=== PATIENT | female | born 1970 | race Caucasian/White ===

== ENCOUNTER 2016-11-19 07:00 | Outpatient (CLI) | payer MEDICAID ==
[2016-11-19 18:49] LABS: BASOPHILS % (AUTO) 0.5 %; EOSINOPHILS # (AUTO) 0.6 10^3/uL (0.0-0.7); EOSINOPHILS % (AUTO) 8.8 %; HCT - HEMATOCRIT 35.5 % (37.0-47.0); HGB - HEMOGLOBIN 11.6 g/dL (12.0-16.0); LYMPHOCYTES # (AUTO) 2.5 10^3/uL (1.5-3.5); LYMPHOCYTES % (AUTO) 38.1 %; MEAN CORPUSCULAR HEMOGLOBIN 28.3 pg (27.0-31.0); MEAN CORPUSCULAR HGB CONC 32.6 g/dL (32.0-36.0); MEAN CORPUSCULAR VOLUME 86.8 fL (81.0-99.0); MEAN PLATELET VOLUME 8.6 fL (7.9-10.8); MONOCYTES # (AUTO) 0.6 10^3/uL (0.0-1.0); NEUTROPHILS # (AUTO) 2.9 10^3/uL (1.5-6.6); NEUTROPHILS % (AUTO) 43.6 %; RED BLOOD COUNT 4.09 10^6/uL (4.20-5.40); RED CELL DISTRIBUTION WIDTH 15.8 % (12.0-15.0); UNCORRECTED WHITE BLOOD COUNT 6.6 x10^3/uL; WHITE BLOOD COUNT 6.6 x10^3/uL (4.8-10.8)
[2016-11-19 19:23] LABS: FERRITIN 10.4 ng/mL (11.0-306.8)
[2016-11-19 19:36] LABS: THYROID STIMULATING HORMONE 0.12 uIU/mL (0.34-5.60)
== END 2016-11-19 07:01 ==
LOC: LAB.WCP 07:00
PROVIDERS: ATTEND Physician Assistant Medical
DX: E03.9 Hypothyroidism, unspecified (principal); D64.9 Anemia, unspecified
CPT/HCPCS: 36415; 82306; 82728; 84443; 85025

== ENCOUNTER 2017-01-04 13:38 | Outpatient (CLI) | payer MEDICAID | END 2017-01-04 13:39 | disposition home or self-care (01) | LOC: LAB.WCP 13:38 | PROVIDERS: ATTEND Physician Assistant Medical | DX: E03.9 Hypothyroidism, unspecified (principal) | CPT/HCPCS: 36415; 84443 ==

== ENCOUNTER 2017-04-14 10:10 | Outpatient (CLI) | payer MEDICAID, OTHER | END 2017-04-14 10:11 | disposition home or self-care (01) | LOC: LAB.WCP 10:10 | PROVIDERS: ATTEND Physician Assistant Medical | DX: E03.9 Hypothyroidism, unspecified (principal) | CPT/HCPCS: 36415; 84443 ==

== ENCOUNTER 2017-07-02 08:00 | Outpatient (CLI) | payer OTHER ==
[2017-07-02 19:30] LABS: THYROID STIMULATING HORMONE 0.18 uIU/mL (0.34-5.60)
[2017-07-02 20:28] LABS: FREE T4 (FREE THYROXINE) 1.08 ng/dL (0.58-1.64)
== END 2017-07-02 08:01 | disposition home or self-care (01) ==
LOC: LAB.WCP 08:00
PROVIDERS: ATTEND Physician Assistant Medical
DX: E03.9 Hypothyroidism, unspecified (principal)
CPT/HCPCS: 36415; 84439; 84443

== ENCOUNTER 2017-11-02 08:00 | Outpatient (CLI) | payer OTHER ==
[2017-11-02 19:06] LABS: THYROID STIMULATING HORMONE 13.89 uIU/mL (0.34-5.60)
[2017-11-02 19:08] LABS: FREE T4 (FREE THYROXINE) 0.49 ng/dL (0.58-1.64)
== END 2017-11-02 08:01 | disposition home or self-care (01) ==
LOC: LAB.WCP 08:00
PROVIDERS: ATTEND Physician Assistant Medical
DX: E03.9 Hypothyroidism, unspecified (principal)
CPT/HCPCS: 36415; 84439; 84443; 84481

== ENCOUNTER 2017-12-13 08:00 | Outpatient (CLI) | payer OTHER | END 2017-12-13 08:01 | LOC: LAB.WCP 08:00 | PROVIDERS: ATTEND Physician Assistant Medical | DX: E03.9 Hypothyroidism, unspecified (principal) | CPT/HCPCS: 36415; 84443 ==

== ENCOUNTER 2017-12-20 08:00 | Outpatient (CLI) | payer OTHER ==
[2017-12-20 13:07] LABS: BASOPHILS % (AUTO) 0.3 %; EOSINOPHILS # (AUTO) 0.2 10^3/uL (0.0-0.7); EOSINOPHILS % (AUTO) 3.4 %; HGB - HEMOGLOBIN 12.8 g/dL (12.0-16.0); LYMPHOCYTES # (AUTO) 1.9 10^3/uL (1.5-3.5); LYMPHOCYTES % (AUTO) 41.2 %; MEAN CORPUSCULAR HEMOGLOBIN 31.4 pg (27.0-31.0); MEAN CORPUSCULAR HGB CONC 33.7 g/dL (32.0-36.0); MEAN CORPUSCULAR VOLUME 93.1 fL (81.0-99.0); MEAN PLATELET VOLUME 8.4 fL (7.9-10.8); MONOCYTES # (AUTO) 0.4 10^3/uL (0.0-1.0); MONOCYTES % (AUTO) 9.3 %; NEUTROPHILS # (AUTO) 2.2 10^3/uL (1.5-6.6); NEUTROPHILS % (AUTO) 45.8 %; PLT - PLATELET COUNT 326 10^3/uL (130-450); RED BLOOD COUNT 4.09 10^6/uL (4.20-5.40); RED CELL DISTRIBUTION WIDTH 13.6 % (12.0-15.0); WHITE BLOOD COUNT 4.7 x10^3/uL (4.8-10.8)
[2017-12-20 13:50] LABS: FERRITIN 31.8 ng/mL (11.0-306.8)
[2017-12-20 14:01] LABS: ALBUMIN 3.6 g/dL (3.2-5.5); ALBUMIN/GLOBULIN RATIO 0.9 (1.0-2.2); ALKALINE PHOSPHATASE 61 IU/L (42-121); ALT ALANINE AMINOTRANSFERASE 14 IU/L (10-60); AST ASPARTATE AMINOTRANSFERASE 18 IU/L (10-42); BILIRUBIN,TOTAL 0.7 mg/dL (0.2-1.0); BUN - BLOOD UREA NITROGEN 16 mg/dL (6-20); CALCIUM 8.7 mg/dL (8.5-10.3); CARBON DIOXIDE - CO2 22 mmol/L (21-32); CHLORIDE 112 mmol/L (101-111); CHOL/HDL RATIO 3.3 (<4.4); CHOLESTEROL 144 mg/dL; CREATININE 0.9 mg/dL (0.4-1.0); GFR - MDRD 67 (>89); GLUCOSE 97 mg/dL (70-100); HDL CHOLESTEROL 44 mg/dL; LDL CHOLESTEROL,CALCULATED 83 mg/dL; LDL/HDL RATIO 1.9 (<4.4); SODIUM 137 mmol/L (135-145); TOTAL PROTEIN 7.6 g/dL (6.7-8.2); VLDL CHOLESTEROL 17 mg/dL
== END 2017-12-20 08:01 | disposition home or self-care (01) ==
LOC: LAB.WCP 08:00
PROVIDERS: ATTEND Physician Assistant Medical
DX: Z00.00 Encounter for general adult medical examination without abnormal findings (principal); D64.9 Anemia, unspecified
CPT/HCPCS: 36415; 80053; 80061; 82607; 82728; 83721; 85025

== ENCOUNTER 2018-04-20 09:32 | Outpatient (CLI) | payer MEDICAID, OTHER ==
[2018-04-20 14:03] LABS: THYROID STIMULATING HORMONE 9.51 uIU/mL (0.34-5.60)
[2018-04-20 15:04] LABS: FREE T4 (FREE THYROXINE) 0.9 ng/dL (0.58-1.64)
== END 2018-04-20 23:59 | disposition home or self-care (01) ==
LOC: LAB.WCP 09:32
PROVIDERS: ATTEND Physician Assistant Medical
DX: E03.9 Hypothyroidism, unspecified (principal)
CPT/HCPCS: 36415; 84439; 84443

== ENCOUNTER 2018-05-20 08:35 | Outpatient (CLI) | payer OTHER | END 2018-05-20 23:59 | disposition home or self-care (01) | LOC: LAB.WCP 08:35 | PROVIDERS: ATTEND Physician Assistant Medical | DX: E03.9 Hypothyroidism, unspecified (principal) | CPT/HCPCS: 36415; 84443 ==

== ENCOUNTER 2018-08-24 08:00 | Outpatient (CLI) | payer OTHER ==
[2018-08-24 14:15] LABS: FREE T4 (FREE THYROXINE) 0.89 ng/dL (0.58-1.64)
== END 2018-08-24 23:59 | disposition home or self-care (01) ==
LOC: LAB.WCP 08:00
PROVIDERS: ATTEND Physician Assistant Medical
DX: E03.9 Hypothyroidism, unspecified (principal)
CPT/HCPCS: 36415; 84439; 84443

== ENCOUNTER 2019-01-05 10:37 | Outpatient (CLI) | payer OTHER | END 2019-01-05 23:59 | disposition home or self-care (01) | LOC: LAB.WCP 10:37 | PROVIDERS: ATTEND Physician Assistant | DX: E03.9 Hypothyroidism, unspecified (principal) | CPT/HCPCS: 36415; 84443 ==

== ENCOUNTER 2019-02-07 12:33 | Outpatient (CLI) | payer OTHER ==
--- NOTE | 2019-02-07 15:42 | XRAY Report ---
Reason: KNEE PAIN,LEFT Procedure Date: 02/07/2019 Accession Number: [id number] / [id number] Procedure: XR - Knee 2 View LT CPT Code: FULL RESULT: EXAM: LEFT KNEE RADIOGRAPHY EXAM DATE: 02/07/2019 01:03 PM. CLINICAL HISTORY: Knee pain, left. COMPARISON: None. TECHNIQUE: 3 views. FINDINGS: Bones: Normal. No fractures or bone lesions. Joints: There is minimal narrowing of the medial compartment of the knee. No chondrocalcinosis. Soft Tissues: Normal. No soft tissue swelling. IMPRESSION: Minimal degenerative changes at the knee. RADIA
== END 2019-02-07 12:34 | disposition home or self-care (01) ==
LOC: DI 12:33
PROVIDERS: ATTEND Physician Assistant Medical
DX: M17.12 Unilateral primary osteoarthritis, left knee (principal)

== ENCOUNTER 2019-03-22 09:44 | Outpatient (CLI) | payer OTHER ==
[2019-03-22 13:07] LABS: THYROID STIMULATING HORMONE 0.17 uIU/mL (0.34-5.60)
[2019-03-22 13:10] LABS: FREE T4 (FREE THYROXINE) 1.02 ng/dL (0.58-1.64)
== END 2019-03-22 23:59 | disposition home or self-care (01) ==
LOC: LAB.WCP 09:44
PROVIDERS: ATTEND Physician Assistant Medical
DX: E03.9 Hypothyroidism, unspecified (principal)
CPT/HCPCS: 36415; 84439; 84443; 84481

== ENCOUNTER 2019-04-18 10:57 | Outpatient (CLI) | payer OTHER ==
[2019-04-18 20:47] VITALS: BP 137/88
--- NOTE | 2019-04-18 20:47 | SLEEP CARE CONSULTATION ---
Information from patient questionnaire entered by Aida Garcia. I have reviewed and concur with the information entered by Aida Garcia. This document represents the service I personally performed and the decisions made by me, Yu Bautista MD, [facility]. History of Present Illness Reason for Visit: New patient Chief Complaint: reports: Excessive daytime sleepiness, Fatigue Duration of Symptoms: a long time Usual bedtime: 5321-6103 Time it takes to fall asleep: 7-10 minutes Snores at night: No (not usually) Observed to quit breathing while asleep: No Sleeps alone due to snoring: No Number of times waking at night: 1-2 Reasons for waking at night: reports: Pain, Bathroom, Other (sometimes asthma) Toss, Turn, or Twitch while sleeping: Yes Recalls having dreams: Yes Usually gets out of bed at: [id number] Feels refreshed in the morning: Yes (50/50 yes/no) Morning headache: Yes (50/50 yes/no) Sleepy or fatigued during the day: Yes Ever fallen asleep while driving: Yes Takes day naps: Yes Dreams during day naps: Yes Prior sleep studies: No Additional HPI information: I had the pleasure of seeing Ms. Orr today regarding the possibility of her having a sleep disorder. As you know, he is a 49 year old lady who complains of excessive daytime sleepiness almost all her life. She took Adderall for 13 years which helped but it recently raised her heart rate and she had to stop. The patient tells me that she normally goes to bed around 10:30 pm - midnight, and it takes her approximately 7 - 10 minutes to fall asleep. She takes trazodone every night. She has not been told that she snores loudly or i rregularly at night. She has never been observed to stop breathing in her sleep. Her spouse can still sleep in the same bed. He uses a CPAP. She can recall waking up on the average of 1 - 2 times during the night. Most of the time she wakes up because of having to use the bathroom and pain. She has never awakened because of her own snoring, choking, or having to gasp for air. There is a lot of tossing and turning in her sleep. No somniloquy (sleep talking) or somnambulism (sleep walking). Generally she can recall having dreams. In the morning she usually gets up out of the bed around 6 - 9 a.m. not feeling refreshed nor rested. She occasionally has a morning headache. During the day she complains of feeling sleepy and fatigued. Her score on [place] Sleepiness Scale is 20 out of 24. She has fallen asleep while driving and has gone out of the [place]. She usually takes 1 3 hour nap during the day. Upon falling asleep during the day she reports having vivid dreams. She has had sleep paralysis, experienced cataplexy and symptoms of restless leg syndrome. She reports having impaired concentration during the day. Subjective Initial [place] Sleepiness Scale score: 20 Past Medical History Past Medical History: reports: Arthritis, Hypothyroidism, Anemia, Asthma, Depr ession, Mood disorder, Attention deficit, Other (degenerative disc disease) Social History The patient's occupation is not employed. Patient is and lives in [place]. Have you smoked in the past 12 months: No Cigarettes per day (20/pack): 40 Years of smokin Quit date: 1996 Smoking Pack Years: 18.0 Alcohol use: Yes Alcohol amount and frequency: not much, on weekends, quit 2006 Caffeine use: No Caffeine amount and frequency: quit a year ago Family History Family history of sleep disordered breathing: No Allergies and Home Medications Allergy and home medication list: Meds: trazodone, topiramate, Breo Elipta, levothyroxine, liothyronine, B12 Allergies: Seroquel, codeine, fentanyl, iodine, morphine Review of Systems Weight gain over past 5 years: 20 Cardiovascular: denies: high blood pressure, palpitations, chest pain, irregular heart rate or pulse, leg or foot swelling, have to sleep sitting up, other Respiratory: denies: shortness of breath, wheeze, sputum production, chronic cough, other Gastrointestinal: reports: difficulty swallowing Urinary: denies: incontinence, frequency, urgency, impotence, other Neurological: denies: headaches, seizure, head trauma, disorientation, speech dysfunction, gait or balance problems, fainting or unconsciousness, other Psychiatric: reports: Attention Deficit Hyperactivity, anxiety, depression, mood disorder Ear/Nose/Throat: reports: nasal congestion, sinus problems, nose bleeds, dry mouth/throat, hoarseness Endocrine: reports: thyroid disease, sluggishness, too hot or cold Musculoskeletal: reports: joint pain, neck pain, back pain, joint swelling, muscle pain or cramping, other (arthritis in left knee) Immunologic: reports: sneezing, itching, allergies to food or environment Physical Exam Vital signs obtained and entered by: Dr. Bautista Blood Pressure: 137/88 Cuff size: regular Heart Rate: 75 O2 Saturation: 98 Height: 5 ft 8 in Weight: 275 lb Body Mass Index: 41.8 BMI Classification: Obesity Class 3 Neck circumference: 15 Mood/affect: normal HEENT: No craniofacial malformation Nostrils: patent to airflow Turbinates: normal Septum: midline Mouth and throat: narrow oropharynx Soft palate: long Hard palate: normal Uvula: normal Uvula visualization: 50% Mallampati Class II Tongue: normal in size Tonsils: small Chin and jaw: normal size and position Neck: normal w/o lymphadenopathy or thyromegaly Heart: regular rate and rhythm Lungs: clear bilaterally Abdomen: soft, non-tender Extremities: no edema or clubbing Neurologic: intact, no focal deficits Impression and Plan IMPRESSION: 1. Hypersomnia, chronic, with symptoms of narcolepsysleep paralysis, hypnagogic hallucination, and possible cataplexy. However, she may also has other sleep disrupting conditions such as sleep-disordered breathing that could explain the excessive daytime sleepiness. Narrow oropharynx and obesity are common predisposing factors for obstructive sleep apnea-hypopnea syndrome. I recommend proceeding to an in-laboratory polysomnography with multiple sleep latency test (MSLT). However, the multiple sleep latency test will have to wait until she can off all medications that have sedating side effect, in her case, trazodone and topiramate, for at least 2 week. Plan: 1. Schedule an in-laboratory polysomnography and a multiple sleep latency test (MSLT) later if the polysomnography is negative for sleep-disordered breathing. 2. Avoid long distance driving or when feeling sleepy. 3. Avoid alcohol, sedative and muscle relaxant around bedtime. 4. Attempt to lose weight. 5. Return in 1 to 2 weeks after the study to discuss results and initiate therapy I spent 100% of this 20 minute visit face to face with the patient with greater than 50% of this was spent time counseling the patient and coordination of care.
== END 2019-04-18 10:58 | disposition home or self-care (01) ==
LOC: SC 10:57
PROVIDERS: ATTEND Internal Medicine Pulmonary Disease
DX: G47.10 Hypersomnia, unspecified (principal); G47.53 Recurrent isolated sleep paralysis; R44.2 Other hallucinations; E66.9 Obesity, unspecified; Z68.41 Body mass index [BMI] 40.0-44.9, adult
CPT/HCPCS: 99203; 99212

== ENCOUNTER 2019-06-12 19:28 | Outpatient (CLI) | payer OTHER | END 2019-06-12 19:29 | disposition home or self-care (01) | LOC: SC 19:28 | PROVIDERS: ATTEND Internal Medicine Pulmonary Disease | DX: G47.10 Hypersomnia, unspecified (principal); E66.9 Obesity, unspecified; Z68.41 Body mass index [BMI] 40.0-44.9, adult; G47.8 Other sleep disorders | CPT/HCPCS: 95810 ==

== ENCOUNTER 2019-07-03 12:56 | Outpatient (CLI) | payer OTHER ==
--- NOTE | 2019-07-03 13:59 | SLEEP CARE CONSULTATION ---
Information from patient questionnaire entered by Aida Garcia. I have reviewed and concur with the information entered by Aida Garcia. This document represents the service I personally performed and the decisions made by me, Yu Bautista MD, [facility]. History of Present Illness Initial [place] Sleepiness Scale score: 20 Current [place] Sleepiness Scale score: 19 Additional HPI information: HPI: Ms. Orr returned for follow up of the sleep study she had on 06/12/2019. The polysomnography showed that the patient had normal sleep efficiency. The sleep architecture was relatively normal considering the first-night effect. Respiratory monitoring showed no significant sleep disordered breathing (AHI = 0.9) or hypoxia (melody oxygen saturation of 88% and only 0.1% to the total sleep time was spent with oxygen saturation below 90%). The few respiratory events occurred only during supine sleep (supine AHI = 3.2; non-supine = 0.00). Snore was moderate in intensity. There was no significant periodic leg movement of sleep. Cardiac rhythm was normal sinus rhythm without significant arrhythmia. No abnormal behavior (parasomnia) observed during the night. The patient was informed of these findings. I explained to her that the sleep study did not show sleep disrupting conditions. She continues to complain of excessive daytime sleepiness. Her [place] Sleepiness Scale score is 19 today. She is still taking trazodone and topiramate, both of which can cause sleepiness. Allergies and Home Medications Drug allergies reviewed: Yes (Seroquel, codeine, fentanyl, iodine, morphine) Home medication list reviewed: Yes (trazodone, topiramate, Breo Elipta, levothyroxine, liothyronine, B12) Physical Exam Height: 5 ft 8 in Weight: 270 lb Body Mass Index: 41.0 BMI Classification: Morbidly Obese Impression and Plan IMPRESSION: 1. Hypersomnia, of unknown etiology. Her recent sleep study did not show any sleep disrupting conditions. Her sleep architecture was also normal. She appears to be getting adequate sleep at night. Therefore, further evaluation will with the multiple sleep latency test (MSLT). However, for this test to be valid, the patient must be off all psychotropic medications, especially those that can cause sleepiness, for at least 2 weeks. I will leave it up to her psychologist/psychiatrist to decide whether it is possible for her to come off the medications. I did call her psychologist Dr. Ramirez twice during her clinic visit but he did not answer. PLAN: 1. Follow up with her psychologist/psychiatrist to see if she can get off all sedating medications for at least 2 week. 2. Consider multiple sleep latency test (MSLT) if she can come of the medications. 4. Return to the sleep clinic for follow up after the study. Addendum: Dr. Ramirez returned call after the patient left. He said the medications were started because she could not sleep without them. He feels that her insomnia will return immediately if he stops the medications. Therefore, I will not order an MSLT because her needing the medications to help her sleep is inconsistent with narcolepsy and other hypersomnolence. I spent 100% of this visit face to face with the patient with greater than 50% of this was spent time counseling the patient and coordination of care.
== END 2019-07-03 12:57 | disposition home or self-care (01) ==
LOC: SC 12:56
PROVIDERS: ATTEND Internal Medicine Pulmonary Disease
DX: G47.10 Hypersomnia, unspecified (principal); E66.01 Morbid (severe) obesity due to excess calories; Z68.41 Body mass index [BMI] 40.0-44.9, adult
CPT/HCPCS: 99212; 99213

== ENCOUNTER 2019-09-14 13:46 | Outpatient (CLI) | payer OTHER ==
[2019-09-14 18:15] LABS: BASOPHILS % (AUTO) 0.3 %; EOSINOPHILS # (AUTO) 0.2 10^3/uL (0.0-0.7); EOSINOPHILS % (AUTO) 2.6 %; HGB - HEMOGLOBIN 13.3 g/dL (12.0-16.0); LYMPHOCYTES # (AUTO) 2.5 10^3/uL (1.5-3.5); LYMPHOCYTES % (AUTO) 42.2 %; MEAN CORPUSCULAR HEMOGLOBIN 30.2 pg (27.0-31.0); MEAN CORPUSCULAR HGB CONC 31.5 g/dL (32.0-36.0); MEAN CORPUSCULAR VOLUME 95.7 fL (81.0-99.0); MEAN PLATELET VOLUME 10.3 fL (7.9-10.8); MONOCYTES # (AUTO) 0.6 10^3/uL (0.0-1.0); MONOCYTES % (AUTO) 9.9 %; NEUTROPHILS # (AUTO) 2.6 10^3/uL (1.5-6.6); NEUTROPHILS % (AUTO) 44.8 %; PLT - PLATELET COUNT 321 10^3/uL (130-450); RED BLOOD COUNT 4.41 10^6/uL (4.20-5.40); RED CELL DISTRIBUTION WIDTH 13.2 % (12.0-15.0); WHITE BLOOD COUNT 5.8 x10^3/uL (4.8-10.8)
[2019-09-14 18:46] LABS: ALBUMIN 4.2 g/dL (3.2-5.5); ALBUMIN/GLOBULIN RATIO 1.1 (1.0-2.2); ALKALINE PHOSPHATASE 77 IU/L (42-121); ALT ALANINE AMINOTRANSFERASE 20 IU/L (10-60); AST ASPARTATE AMINOTRANSFERASE 24 IU/L (10-42); BILIRUBIN,TOTAL 0.4 mg/dL (0.2-1.0); BUN - BLOOD UREA NITROGEN 17 mg/dL (6-20); CARBON DIOXIDE - CO2 22 mmol/L (21-32); CHLORIDE 111 mmol/L (101-111); CHOL/HDL RATIO 3.9 (<4.4); CHOLESTEROL 149 mg/dL; CREATININE 0.8 mg/dL (0.4-1.0); GLUCOSE 98 mg/dL (70-100); HDL CHOLESTEROL 38 mg/dL; LDL CHOLESTEROL,CALCULATED 87 mg/dL; LDL/HDL RATIO 2.3 (<4.4); SODIUM 139 mmol/L (135-145); TOTAL PROTEIN 8.2 g/dL (6.7-8.2); VLDL CHOLESTEROL 24 mg/dL
[2019-09-14 18:55] LABS: FREE T3 3.37 pg/mL (2.5-3.9)
[2019-09-14 19:40] LABS: FREE T4 (FREE THYROXINE) 0.95 ng/dL (0.58-1.64)
== END 2019-09-14 13:47 | disposition home or self-care (01) ==
LOC: LAB.WCP 13:46
PROVIDERS: ATTEND Physician Assistant Medical
DX: Z00.00 Encounter for general adult medical examination without abnormal findings (principal)
CPT/HCPCS: 36415; 80053; 80061; 83721; 84439; 84443; 84481; 85025

== ENCOUNTER 2019-11-17 10:15 | Emergency (ER) | payer MEDICAID, OTHER ==
[2019-11-17] MEDS ORDERED: PENICILLIN VK 250 MG TABLET PO STA (10:34)
--- NOTE | 2019-11-17 10:39 | ED Physician Documentation ---
History of Present Illness - Stated complaint Stated Complaint: TOOTH PX - Chief complaint Chief Complaint: Heent - History obtained from History obtained from: Patient - History of Present Illness Pain level max: 8 Pain level now: 8 - Additonal information Additional information: 49-year-old female presents to the emergency department complaint of left-sided dental pain. This been ongoing for the past several days, increasing pain today. Has not contacted her dentist yet. She had a crown and root canal done approximately 1 year ago on that tooth. No facial swelling. No fevers. 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 - Present Medications Home Medications: Ambulatory Orders Medication Instructions Recorded Confirmed Budesonide [Pulmicort] 1 puffs INH DAILY 10/26/12 05/13/16 Topiramate [Topamax] 100 mg PO DAILY 10/26/12 05/13/16 Albuterol Sulfate [Albuterol 0 puffs INH ONCE PRN 12/04/13 05/13/16 Sulfate Hfa] Natures Thyroid 1.5 gm PO BID 12/04/13 05/13/16 Albuterol Sulfate [Proair Hfa 3 puffs IH QID #1 hfa.aer.ad 05/13/16 Inhaler] Benzonatate [Tessalon] 100 mg PO TID PRN #25 capsule 05/13/16 Cephalexin [Keflex] 500 mg PO QID #24 capsule 05/13/16 dexAMETHasone [Decadron] 4 mg PO DAILY #5 tablet 05/13/16 Penicillin V Potassium 500 mg PO Q6HR #40 tablet 11/17/19 - Allergies Allergies/Adverse Reactions: Allergies Allergy/AdvReac Type Severity Reaction Status Date / Time quetiapine fumarate * Allergy Anxiety Verified 11/17/19 10:27 [From Seroquel] codeine [Codeine] AdvReac Unknown Anxiety Verified 11/17/19 10:27 fentanyl AdvReac Unknown Anxiety Verified 11/17/19 10:27 iodine AdvReac Unknown swelling Verified 11/17/19 10:27 morphine AdvReac Unknown Anxiety Verified 11/17/19 10:27 - Social History Does the pt smoke?: No Smoking Status: Never smoker Does the pt have substance abuse?: Yes - POLST Patient has POLST: No PD ED PE NORMAL - Vitals Vital signs reviewed: Yes - General General: Alert and oriented X 3, No acute distress, Well developed/nourished - HEENT HEENT: PERRL, Moist mucous membranes, Other (Tender to palpation over the left lower molar, crown in place. No gingival swelling. No abscess. No facial swelling. No trismus. No Moncho's angina. Normal phonation) - Neck Neck: Supple, no meningeal sign, No adenopathy - Cardiac Cardiac: RRR, Strong equal pulses - Respiratory Respiratory: No respiratory distress, Clear bilaterally - Derm Derm: Warm and dry, No rash - Neuro Neuro: Alert and oriented X 3 - Psych Psych: Normal mood, Normal affect Results - Vitals Vitals: Vital Signs - 24 hr 11/17/19 10:24 Temperature 36.6 C Heart Rate 69 Respiratory 20 Rate Blood Pressure 177/103 H O2 Saturation 98 Oxygen O2 Source Room air PD MEDICAL DECISION MAKING - ED course Complexity details: considered differential, d/w patient ED course: Patient with left lower dental pain. We will place on penicillin. We will have her follow-up closely with her dentist next week. No drainable abscess. No voice changes. No speech or breathing difficulties. No swelling. Patient counseled regarding signs and symptoms for which I believe and urgent re- evaluation would be necessary. Patient with good understanding of and agreement to plan and is comfortable going home at this time This document was made in part using voice recognition software. While efforts are made to proofread this document, sound alike and grammatical errors may occur. Departure - Departure Disposition: Home, Self Care Clinical Impression: Pain, dental Condition: Good Instructions: ED Tooth Pain Follow-Up: Your,Dentist on Wednesday [Other] Prescriptions: Penicillin V Potassium 500 mg PO Q6HR #40 tablet Comments: Take all antibiotics until gone. Return if you worsen. Follow-up with your dentist on Wednesday for further care.
[2019-11-17 10:48] VITALS: BP 168/89
== END 2019-11-17 10:48 | disposition home or self-care (01) ==
LOC: ED 10:15
DX: K08.89 Other specified disorders of teeth and supporting structures (principal)
CPT/HCPCS: 99282; 99284; A9270

== ENCOUNTER 2020-01-19 08:00 | Outpatient (CLI) | payer MEDICAID ==
[2020-01-19 13:04] LABS: FREE T4 (FREE THYROXINE) 1.26 ng/dL (0.58-1.64)
== END 2020-01-19 08:01 | disposition home or self-care (01) ==
LOC: LAB.WCP 08:00
PROVIDERS: ATTEND Physician Assistant Medical
DX: E03.9 Hypothyroidism, unspecified (principal)
CPT/HCPCS: 36415; 84439; 84443

== ENCOUNTER 2020-02-21 09:32 | Outpatient (CLI) | payer MEDICAID ==
[2020-02-21 12:52] LABS: FREE T4 (FREE THYROXINE) 0.92 ng/dL (0.58-1.64)
== END 2020-02-21 23:59 | disposition home or self-care (01) ==
LOC: LAB.WCP 09:32
PROVIDERS: ATTEND Physician Assistant Medical
DX: E03.9 Hypothyroidism, unspecified (principal)
CPT/HCPCS: 36415; 84439; 84443

== ENCOUNTER 2020-09-27 08:00 | Outpatient (CLI) | payer MEDICAID ==
[2020-09-27 18:24] LABS: THYROID STIMULATING HORMONE 0.16 uIU/mL (0.34-5.60)
[2020-09-27 19:09] LABS: FREE T4 (FREE THYROXINE) 1.05 ng/dL (0.58-1.64)
== END 2020-09-27 23:59 | disposition home or self-care (01) ==
LOC: LAB.WCP 08:00
PROVIDERS: ATTEND Physician Assistant Medical
DX: E04.1 Nontoxic single thyroid nodule (principal)
CPT/HCPCS: 36415; 84439; 84443

== ENCOUNTER 2020-10-10 08:00 | Outpatient (CLI) | payer OTHER, MEDICAID ==
[2020-10-10 12:25] LABS: BASOPHILS % (AUTO) 0.3 %; EOSINOPHILS # (AUTO) 0.2 10^3/uL (0.0-0.7); EOSINOPHILS % (AUTO) 3.1 %; HCT - HEMATOCRIT 40.6 % (37.0-47.0); HGB - HEMOGLOBIN 12.9 g/dL (12.0-16.0); LYMPHOCYTES # (AUTO) 2.7 10^3/uL (1.5-3.5); LYMPHOCYTES % (AUTO) 44.2 %; MEAN CORPUSCULAR HEMOGLOBIN 31.2 pg (27.0-31.0); MEAN CORPUSCULAR HGB CONC 31.8 g/dL (32.0-36.0); MEAN CORPUSCULAR VOLUME 98.1 fL (81.0-99.0); MEAN PLATELET VOLUME 10.5 fL (7.9-10.8); MONOCYTES # (AUTO) 0.6 10^3/uL (0.0-1.0); MONOCYTES % (AUTO) 9.8 %; NEUTROPHILS # (AUTO) 2.6 10^3/uL (1.5-6.6); NEUTROPHILS % (AUTO) 42.4 %; PLT - PLATELET COUNT 287 10^3/uL (130-450); RED BLOOD COUNT 4.14 10^6/uL (4.20-5.40); RED CELL DISTRIBUTION WIDTH 13.3 % (12.0-15.0); WHITE BLOOD COUNT 6.2 x10^3/uL (4.8-10.8)
[2020-10-10 12:27] LABS: ALBUMIN 4.1 g/dL (3.2-5.5); ALBUMIN/GLOBULIN RATIO 1.1 (1.0-2.2); ALKALINE PHOSPHATASE 65 IU/L (42-121); ALT ALANINE AMINOTRANSFERASE 24 IU/L (10-60); AST ASPARTATE AMINOTRANSFERASE 25 IU/L (10-42); BILIRUBIN,TOTAL 0.5 mg/dL (0.2-1.0); BUN - BLOOD UREA NITROGEN 13 mg/dL (6-20); CARBON DIOXIDE - CO2 22 mmol/L (21-32); CHLORIDE 109 mmol/L (101-111); CHOL/HDL RATIO 3.3 (<4.4); CHOLESTEROL 135 mg/dL; CREATININE 0.8 mg/dL (0.4-1.0); GFR - MDRD 76 (>89); GLUCOSE 111 mg/dL (70-100); HDL CHOLESTEROL 41 mg/dL; LDL CHOLESTEROL,CALCULATED 77 mg/dL; LDL/HDL RATIO 1.9 (<4.4); SODIUM 138 mmol/L (135-145); TOTAL PROTEIN 7.8 g/dL (6.7-8.2); TRIGLYCERIDES 85 mg/dL; VLDL CHOLESTEROL 17 mg/dL
[2020-10-10 12:28] LABS: THYROID STIMULATING HORMONE 0.19 uIU/mL (0.34-5.60)
[2020-10-10 13:19] LABS: FREE T4 (FREE THYROXINE) 0.98 ng/dL (0.58-1.64)
== END 2020-10-10 23:59 | disposition home or self-care (01) ==
LOC: LAB.WCP 08:00
PROVIDERS: ATTEND Physician Assistant Medical
DX: Z00.00 Encounter for general adult medical examination without abnormal findings (principal); E03.9 Hypothyroidism, unspecified
CPT/HCPCS: 36415; 80053; 80061; 83721; 84439; 84443; 85025

== ENCOUNTER 2020-11-08 08:00 | Outpatient (CLI) | payer MEDICAID, OTHER ==
[2020-11-08 18:42] LABS: THYROID STIMULATING HORMONE 0.16 uIU/mL (0.34-5.60)
[2020-11-08 19:19] LABS: FREE T4 (FREE THYROXINE) 1.02 ng/dL (0.58-1.64)
== END 2020-11-08 23:59 | disposition home or self-care (01) ==
LOC: LAB.WCP 08:00
PROVIDERS: ATTEND Physician Assistant Medical
DX: E03.9 Hypothyroidism, unspecified (principal)
CPT/HCPCS: 36415; 84439; 84443

== ENCOUNTER 2021-01-10 13:51 | Outpatient (CLI) | payer OTHER ==
--- NOTE | 2021-01-13 15:43 | Mammography Report ---
BILATERAL DIGITAL SCREENING MAMMOGRAM 3D/2D: 01/10/2021 CLINICAL: Routine screening. Comparison is made to exams dated: 03/12/2016 mammogram, 10/29/2014 mammogram, 07/20/2013 mammogram, an d 08/19/2011 mammogram - [facility]. The tissue of both breasts is predominantly fat ty. No significant masses, calcifications, or other findings are seen in either breast. There has been no significant interval change. IMPRESSION: NEGATIVE There is no mammographic evidence of malignancy. A 1 year screening mammogram is recommended. This exam was interpreted at Station ID: [id number]. NOTE: For mammograms, a report in lay terms will be sent to the patient. Approximately 15% of breast malignancies will not be visualized mammographically. In the management of a palpable breast mass, a negative mammogram must not discourage biopsy of a clinically suspicious lesion. Electronically Signed By: Claudio Nash M.D. aty/penrad:01/10/2021 15:56:07 ACR BI-RADS Category 1: Negative 3341F PARENCHYMAL PATTERN: (F) - The breast(s) demonstrate(s) diffuse fatty replacement. BI-RADS CATEGORY: (1) - 1 RECOMMENDATION: (ANNUAL) - Recommend routine annual screening mammography. [id number] 1 year screening LATERALITY: (B)
== END 2021-01-10 13:52 | disposition home or self-care (01) ==
LOC: DI 13:51
DX: Z12.31 Encounter for screening mammogram for malignant neoplasm of breast (principal)

== ENCOUNTER 2021-01-10 13:51 | Outpatient (CLI) | payer OTHER ==
--- NOTE | 2021-01-10 16:04 | Ultrasound Report ---
PROCEDURE: Head or Neck Soft Tissue INDICATIONS: THYROID NODULE TECHNIQUE: Real-time scanning was performed of the thyroid gland, with image documentation. COMPARISON: 10/30/2013 FINDINGS: Right: Thyroid lobe measures 4.9 x 1.6 x 1.5 cm, and is slightly heterogeneous in echotexture. Left: Thyroid lobe measures 4.7 x 1.8 x 1.5 cm, and is slightly heterogeneous in echotexture. Isthmus: 4 mm thick. Nodule number: One Location: Right superior Size: 5 x 3 x 3 mm. Composition: Solid Echogenicity: Hypoechoic Shape: wider than tall. Margins: Smooth Echogenic foci: None Total points: 4 ACR TI-RADS category: TI-RADS 4 IMPRESSION: 1. Moderately suspicious (TI-RADS 4) 5 x 3 x 3 mm nodule in the superior aspect of the right thyroid lobe. Based on size and imaging characteristics follow-up ultrasound at one, 3 and 5 years is recomme nded. 2. Thyroid nodules previously described by thyroid ultrasound obtained 10/30/2013 not identified on cu rrent study. ACR TI-RADS definitions and recommendations: TI-RADS 1 (benign): 0 points. FNA not needed. TI-RADS 2 (not suspicious): 2 points. FNA not needed. TI-RADS 3 (mildly suspicious): 3 points. ? FNA if 2.5 cm or larger, follow up if 1.5 cm or larger (at 1, 3, and 5 years). TI-RADS 4 (moderately suspicious): 4-6 points. ? FNA if 1.5 cm or larger, follow up if 1 cm or larger (at 1, 2, 3, and 5 years). TI-RADS 5 (highly suspicious): 7 points or more. ? FNA if 1 cm or larger, follow up if 0.5 cm or larger (every year for 5 years). Reviewed by: Andree Holbrook MD, PhD on 01/10/2021 4:03 PM PDT Approved by: Andree Holbrook MD, PhD on 01/10/2021 4:03 PM PDT Station ID: [id number]
== END 2021-01-10 13:52 | disposition home or self-care (01) ==
LOC: DI 13:51
PROVIDERS: ATTEND Physician Assistant Medical
DX: E04.1 Nontoxic single thyroid nodule (principal)

== ENCOUNTER 2021-03-12 08:00 | Outpatient (CLI) | payer OTHER ==
[2021-03-12 18:31] LABS: THYROID STIMULATING HORMONE 1.92 uIU/mL (0.34-5.60)
[2021-03-12 18:33] LABS: FREE T4 (FREE THYROXINE) 0.73 ng/dL (0.58-1.64)
== END 2021-03-12 23:59 | disposition home or self-care (01) ==
LOC: LAB.WCP 08:00
PROVIDERS: ATTEND Student in an Organized Health Care Education/Training Program
DX: E03.9 Hypothyroidism, unspecified (principal)
CPT/HCPCS: 36415; 84439; 84443

== ENCOUNTER 2021-04-20 08:00 | Outpatient (CLI) | payer OTHER | END 2021-04-20 23:59 | disposition home or self-care (01) | LOC: LAB.N 08:00 | PROVIDERS: ATTEND Nurse Practitioner | DX: J06.9 Acute upper respiratory infection, unspecified (principal); Z20.822 Contact with and (suspected) exposure to COVID-19 ==

== ENCOUNTER 2021-05-05 08:17 | Outpatient (CLI) | payer OTHER ==
[2021-05-05 12:46] LABS: THYROID STIMULATING HORMONE 4.81 uIU/mL (0.34-5.60)
== END 2021-05-05 23:59 | disposition home or self-care (01) ==
LOC: LAB.WCP 08:17
PROVIDERS: ATTEND Physician Assistant Medical
DX: E03.9 Hypothyroidism, unspecified (principal)
CPT/HCPCS: 36415; 84443

== ENCOUNTER 2022-01-28 14:22 | Outpatient (CLI) | payer OTHER ==
--- NOTE | 2022-01-28 16:28 | XRAY Report ---
PROCEDURE: Ankle 3 View BILAT INDICATIONS: ANKEL PAIN, BILATERAL TECHNIQUE: 3 views of both ankles were acquired. COMPARISON: None FINDINGS: Bones: No fractures or dislocations. Ankle mortise is normally aligned. No suspicious bony lesions . Soft tissues: No tibiotalar joint effusion. Achilles tendon appears normal. IMPRESSION: Normal bilateral ankles. Reviewed by: Travis Tejada MD on 01/28/2022 4:27 PM PDT Approved by: Travis Tejada MD on 01/28/2022 4:27 PM PDT Station ID: [id number]
== END 2022-01-28 14:23 | disposition home or self-care (01) ==
LOC: DI.N 14:22
PROVIDERS: ATTEND Physician Assistant
DX: M25.572 Pain in left ankle and joints of left foot (principal); M25.571 Pain in right ankle and joints of right foot

== ENCOUNTER 2022-09-01 09:24 | Outpatient (CLI) | payer OTHER ==
--- NOTE | 2022-09-01 17:28 | XRAY Report ---
PROCEDURE: Hip w/Pelvis 2-3V RT INDICATIONS: HIP PAIN RIGHT TECHNIQUE: AP pelvis with lateral view(s) of the right hip(s). COMPARISON: None. FINDINGS: Bones: No fractures or dislocations. Mild bilateral hip joint osteoarthritis is seen with joint spac e narrowing and subchondral sclerosis. No evidence of avascular necrosis of femoral head. Pelvic ring appears intact. No suspicious bony lesions. Soft tissues: The visualized bowel gas pattern is normal. No suspicious soft tissue calcifications. IMPRESSION: Mild bilateral hip joint osseous arthritis. No acute pelvic or hip fracture. No evidence of avascular necrosis. Reviewed by: Rahat Ramirez MD on 09/01/2022 5:27 PM PDT Approved by: Rahat Ramirez MD on 09/01/2022 5:27 PM PDT Station ID: [id number]
== END 2022-09-01 09:25 | disposition home or self-care (01) ==
LOC: DI 09:24
PROVIDERS: ATTEND Family Medicine
DX: M16.0 Bilateral primary osteoarthritis of hip (principal)

== ENCOUNTER 2022-11-03 09:52 | Outpatient (CLI) | payer OTHER ==
[2022-11-03 10:02] LABS: BASOPHILS % (AUTO) 0.4 %; EOSINOPHILS # (AUTO) 0.3 10^3/uL (0.0-0.7); EOSINOPHILS % (AUTO) 7.2 %; HCT - HEMATOCRIT 38.5 % (37.0-47.0); HGB - HEMOGLOBIN 12.6 g/dL (12.0-16.0); MEAN CORPUSCULAR HEMOGLOBIN 30.9 pg (27.0-31.0); MEAN CORPUSCULAR HGB CONC 32.7 g/dL (32.0-36.0); MEAN CORPUSCULAR VOLUME 94.4 fL (81.0-99.0); MEAN PLATELET VOLUME 9.9 fL (7.9-10.8); MONOCYTES # (AUTO) 0.4 10^3/uL (0.0-1.0); MONOCYTES % (AUTO) 8.5 %; NEUTROPHILS # (AUTO) 1.8 10^3/uL (1.5-6.6); NEUTROPHILS % (AUTO) 39.7 %; PLT - PLATELET COUNT 280 10^3/uL (130-450); RED BLOOD COUNT 4.08 10^6/uL (4.20-5.40); RED CELL DISTRIBUTION WIDTH 12.9 % (12.0-15.0); WHITE BLOOD COUNT 4.6 x10^3/uL (4.8-10.8)
[2022-11-03 10:31] LABS: THYROID STIMULATING HORMONE 0.44 uIU/mL (0.34-5.60)
[2022-11-03 11:59] LABS: ALBUMIN 4.2 g/dL (3.2-5.5); ALKALINE PHOSPHATASE 70 IU/L (42-121); ALT ALANINE AMINOTRANSFERASE 20 IU/L (10-60); AST ASPARTATE AMINOTRANSFERASE 20 IU/L (10-42); BILIRUBIN,TOTAL 0.4 mg/dL (0.2-1.0); BUN - BLOOD UREA NITROGEN 17 mg/dL (6-20); CARBON DIOXIDE - CO2 21 mmol/L (21-32); CHLORIDE 109 mmol/L (101-111); CHOL/HDL RATIO 2.8 (<4.4); CHOLESTEROL 145 mg/dL; CREATININE 0.8 mg/dL (0.4-1.0); GFR - MDRD 75 (>89); GLUCOSE 104 mg/dL (70-100); HDL CHOLESTEROL 51 mg/dL; LDL CHOLESTEROL,CALCULATED 80 mg/dL; LDL/HDL RATIO 1.6 (<4.4); SODIUM 139 mmol/L (135-145); TOTAL PROTEIN 8.4 g/dL (6.7-8.2); TRIGLYCERIDES 69 mg/dL; VLDL CHOLESTEROL 14 mg/dL
[2022-11-03 12:06] LABS: ESTIMATED AVERAGE GLUCOSE 117 mg/dL (70-100); HEMOGLOBIN A1c% 5.7 % (4.27-6.07)
--- NOTE | 2022-11-03 20:57 | XRAY Report ---
PROCEDURE: Lumbar Spine 2 View INDICATIONS: BACK PAIN, CHRONIC TECHNIQUE: 3 views of the lumbar spine were acquired. COMPARISON: MRI lumbar spine 07/04/2014. FINDINGS: Bones: 5 [id number] vertebrae are present. No significant listhesis. No vertebral body rekha linda fractures. Mild-moderate multilevel degenerative changes with disc height loss, endplate spurri ng, and facet arthropathy. Disc height loss is worst at L4-L5. Soft tissues: Overlying bowel gas pattern is normal. No suspicious soft tissue calcifications. IMPRESSION: Multilevel degenerative changes of the lumbar spine. Reviewed by: Drew Bishop MD on 11/03/2022 8:56 PM PDT Approved by: Drew Bishop MD on 11/03/2022 8:56 PM PDT Station ID: [id number]
== END 2022-11-03 09:53 | disposition home or self-care (01) ==
LOC: DI 09:52
PROVIDERS: ATTEND Physician Assistant Medical
DX: M51.36 Other intervertebral disc degeneration, lumbar region (principal); M47.816 Spondylosis without myelopathy or radiculopathy, lumbar region; Z00.00 Encounter for general adult medical examination without abnormal findings; R73.9 Hyperglycemia, unspecified; E03.9 Hypothyroidism, unspecified; D64.9 Anemia, unspecified
CPT/HCPCS: 36415; 80053; 80061; 83036; 83721; 84443; 85025

== ENCOUNTER 2022-11-03 11:08 | Outpatient (CLI) | payer OTHER ==
--- NOTE | 2022-11-04 09:19 | Mammography Report ---
BILATERAL DIGITAL SCREENING MAMMOGRAM 3D/2D: 11/03/2022 CLINICAL: Routine screening. Comparison is made to exams dated: 01/10/2021 mammogram, 03/12/2016 mammogram, 10/29/2014 mammogram, a nd 07/20/2013 mammogram - [facility]. Both breasts are almost entirely fatty (category a/<25% glandular tissue). No significant masses, calcifications, or other findings are seen in either breast. There has been no significant interval change. IMPRESSION: NEGATIVE There is no mammographic evidence of malignancy. A 1 year screening mammogram is recommended. Based on the Tyrer Cuzick model (a risk assessment model) the patients lifetime risk is 4.4% and her 10 year risk is 1.1%. According to the ACR, ACS, and NCCN guidelines, an annual breast MRI exam wilver g with mammogram is recommended if the patients lifetime risk is 20% or greater. This exam was interpreted at Station ID: [id number]. NOTE: For mammograms, a report in lay terms will be sent to the patient. Approximately 15% of breast malignancies will not be visualized mammographically. In the management of a palpable breast mass, a negative mammogram must not discourage biopsy of a clinically suspicious lesion. Electronically Signed By: Claudio bennett/harsh:11/03/2022 15:23:07 letter sent: No_Letter ACR BI-RADS Category 1: Negative 3341F PARENCHYMAL PATTERN: (F) - The breast(s) demonstrate(s) diffuse fatty replacement. BI-RADS CATEGORY: (1) - 1 Mammogram [id number] 1 year screening LATERALITY: (B)
== END 2022-11-03 11:09 | disposition home or self-care (01) ==
LOC: DI 11:08
DX: Z12.31 Encounter for screening mammogram for malignant neoplasm of breast (principal)

== ENCOUNTER 2023-06-10 10:43 | Outpatient (CLI) | payer OTHER, MEDICARE ==
[2023-06-10 18:44] LABS: THYROID STIMULATING HORMONE 0.51 uIU/mL (0.34-5.60)
== END 2023-06-10 10:44 | disposition home or self-care (01) ==
LOC: LAB.N 10:43
PROVIDERS: ATTEND Physician Assistant Medical
DX: E03.9 Hypothyroidism, unspecified (principal)
CPT/HCPCS: 36415; 84439; 84443; 84481